=== PATIENT | female | born 1990 | race Hispanic/Latino ===

== ENCOUNTER 2025-06-13 05:25 | Inpatient (IN) | payer OTHER, SELFPAY ==
[2025-06-13 06:18] VITALS: BMI 38.2
[2025-06-13] MEDS ORDERED: Tranexamic Acid 1,000 MG/10 ML VIAL IVP PRN (06:30)
[2025-06-13] MEDS ORDERED: Methylergonovine 0.2 MG/ML VIAL IM PRN (06:30)
[2025-06-13] MEDS ORDERED: Carboprost 250 MCG/ML AMP IM PRN (06:30)
[2025-06-13] MEDS ORDERED: Ibuprofen 800 MG TAB PO PRN (06:30)
[2025-06-13] MEDS ORDERED: Oxytocin 30 units/NS 500 ML 500 ML IV SCH (06:30)
[2025-06-13] MEDS ORDERED: hydrALAZINE 20 MG/ML VIAL SLOW IVP PRN ×2 (06:30→16:28)
[2025-06-13] MEDS ORDERED: Diphenoxylate HCl/Atropine Tablet PO PRN ×2 (06:30)
[2025-06-13] MEDS ORDERED: Acetaminophen 500 MG TAB PO PRN (06:30)
[2025-06-13] MEDS ORDERED: Ondansetron PF 4 MG/2 ML Vial IVP PRN ×3 (06:30→16:28)
[2025-06-13] MEDS ORDERED: Lidocaine 1% (PF) 30 ML VIAL SC PRN (06:30)
[2025-06-13 06:54] LABS: Hematocrit 36.5 % (34.9-44.5); Hemoglobin 12.2 g/dL (12.0-15.5); Mean Corpuscular Hemoglobin 26.4 pg (27.0-33.0); Mean Corpuscular Volume 79.0 fL (81.6-98.3); Platelet Count 266 10x3/uL (150-450); Red Blood Cell (RBC) Count 4.62 10x6/uL (3.90-5.03); White Blood Cell (WBC) Count 8.53 10x3/uL (3.5-10.5)
[2025-06-13] MEDS: Oxytocin 30 units/NS 500 ML 500 ML IV SCH (07:05)
[2025-06-13 08:06] LABS: Syphilis Antibody Index 0.12 S/CO (<1.00 Non-Reactive)
[2025-06-13 08:08] LABS: Hep B Surf Ag - L&D Non-Reactive S/CO (NonReactive)
[2025-06-13] MEDS: fentaNYL/Ropivacaine Epidural 100 ML ONE (10:12)
[2025-06-13] MEDS ORDERED: diphenhydrAMINE 50 MG/ML VIAL IVP PRN (10:20)
[2025-06-13] MEDS ORDERED: Acetaminophen 325 MG TAB PO PRN (10:20)
[2025-06-13] MEDS ORDERED: Communication Order-Pharmacy FS SCH (10:30)
[2025-06-13] MEDS ORDERED: fentaNYL 2 mcg/Ropivacaine 0.2% Epidural 100 ML CADD EPIDURAL SCH (10:30)
[2025-06-13] MEDS ORDERED: Benzocaine-Menthol 82.5 ML CAN TOP PRN (16:28)
[2025-06-13] MEDS ORDERED: Lanolin Ointment 7 GM TUBE TOP PRN (16:28)
[2025-06-13] MEDS ORDERED: Milk Of Magnesia 30 ML UDCUP PO PRN (16:28)
[2025-06-13] MEDS ORDERED: Bisacodyl 10 MG SUPP PR PRN (16:28)
[2025-06-13] MEDS ORDERED: diphenhydrAMINE 25 MG CAP PO PRN (16:28)
[2025-06-13] MEDS: Ferrous Sulfate 325 MG TAB PO SCH (18:32)
[2025-06-13] MEDS: Ibuprofen 800 MG TAB PO SCH ×2 (18:39→21:22)
[2025-06-14] MEDS ORDERED: HYDROcodone/Acetaminophen 5/325 mg Tablet PO PRN (10:21)
[2025-06-14 12:02] VITALS: BP 120/75; TEMP 97.9
== END 2025-06-14 15:38 | disposition home or self-care (01) | DRG 807 ==
LOC: CSHLD 05:25 → CSHPP 15:43
PROVIDERS: ADMIT Family Medicine; ATTEND Family Medicine
PROC: 10E0XZZ Delivery of Products of Conception, External Approach (ICD-10-PCS; principal; 2025-06-13)
PROC: 10907ZC Drainage of Amniotic Fluid, Therapeutic from Products of Conception, Via Natural or Artificial Opening (ICD-10-PCS; 2025-06-13)
PROC: 3E033VJ Introduction of Other Hormone into Peripheral Vein, Percutaneous Approach (ICD-10-PCS; 2025-06-13)
PROC: 4A1HXCZ Monitoring of Products of Conception, Cardiac Rate, External Approach (ICD-10-PCS; 2025-06-13)
DX: O80 Encounter for full-term uncomplicated delivery (principal); Z37.0 Single live birth; Z3A.39 39 weeks gestation of pregnancy; Z79.899 Other long term (current) drug therapy; Z79.82 Long term (current) use of aspirin
CPT/HCPCS: 36415; 51702; 85027; 86780; 86850; 86900; 86901; 87340; J2590